=== PATIENT | female | born 1960 | race Two or more races ===

== ENCOUNTER → 2024-06-04 | Outpatient (CLI) | payer OTHER, SELFPAY ==
--- NOTE | 2024-06-04 14:15 | XR_ITS ---
Examination: Bone densitometry Date and time of exam:June 04, 2024 1412 hours INDICATIONS: Menopause age 53, personal history osteopenia Technique: Lumbar spine and hip total bone mineralization values of an calculated. Peak reference and age match control results have been displayed. Findings: Lumbar spine total bone mineralization is0.926 gm/cm2. This is 1.1 standard deviations below peak reference. This is 0.6 standard deviations above age-matched controls. Hip total bone mineralization is 1.000 gm/cm2 This is 0.3 standard deviations above peak reference. This is 1.3 standard deviations above age-matched controls Impression: There is osteopenia based on lumbar spine measurements. There is osteopenia based on hip measurements Lumbar mineralization is decreased 0.2% compared with January 09, 2014 Hip mineralization is decreased 0.2% compared with January 09, 2014
== END | disposition home or self-care (01) ==
PROVIDERS: PCP Specialist; Referring Provider Specialist; Visit Provider Specialist
DX: M85.89 Other specified disorders of bone density and structure, multiple sites (principal)
CPT/HCPCS: 77080

== ENCOUNTER → 2024-07-17 | Outpatient (CLI) | payer OTHER, SELFPAY ==
--- NOTE | 2024-07-17 14:49 | XR_ITS ---
Examination: Bilateral wrists 6 views Technique: Wrist AP, oblique, lateral 3 views each wrist total 6 views Date and time of exam: July 09, 2024 1546 hours Bilateral hand pain and numbness wrist pain especially right wrist one month FINDINGS: Moderate osteopenia Mild diffuse narrowing radiocarpal intercarpal carpometacarpal joints right and left wrist No erosive arthritis No opaque foreign bodies IMPRESSION: Moderate osteopenia Mild diffuse narrowing radiocarpal, intercarpal, carpometacarpal joints right and left wrist No erosive arthritis No fractures
--- NOTE | 2024-07-17 14:49 | XR_ITS ---
Examination: Bilateral hands, 6 views. 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
== END | disposition home or self-care (01) ==
PROVIDERS: PCP Specialist; Referring Provider Specialist; Visit Provider Specialist
DX: M19.042 Primary osteoarthritis, left hand (principal); M25.842 Other specified joint disorders, left hand; M25.841 Other specified joint disorders, right hand; M85.88 Other specified disorders of bone density and structure, other site; M25.832 Other specified joint disorders, left wrist; M25.831 Other specified joint disorders, right wrist
CPT/HCPCS: 73110; 73130

== ENCOUNTER → 2024-08-20 | Outpatient (CLI) | payer OTHER, SELFPAY ==
[2024-08-20 11:38] LABS: Parathyroid Hormone Intact 77.9 pg/ml (18.5-88.0)
[2024-08-20 11:39] LABS: Glucose Estimated Average 100 mg/dL (80-131); Hemoglobin A1C 5.1 % Hgb (4.8-6.0)
[2024-08-20 11:42] LABS: Follicle Stimulating Hormone 41.49 mIU/mL (See Note)
[2024-08-20 11:44] LABS: Alanine Aminotransferase 19 U/L (10-49); Albumin, Serum 4.3 gm/dL (3.4-4.8); Alkaline Phosphatase 88 U/L (46-116); Anion Gap 8 (7-16); Aspartate Amino Transferase 14 U/L (0-34); BUN/Creatinine Ratio 27 Ratio (12-20); Bilirubin,Total 0.5 mg/dL (0.3-1.2); Blood Urea Nitrogen 16 mg/dL (9-23); Calcium 9.4 mg/dL (8.3-10.6); Calcium (Corrected) 9.4 mg/dL (8.5-10.1); Carbon Dioxide 24.9 mMol/L (20.0-31.0); Cardiac Risk Estimate 4.1 RATIO (3.7-5.6); Chloride 112 mMol/L (98-107); Cholesterol 199 mg/dL (132-200); Creatinine (Component) 0.6 mg/dL (0.6-1.3); Globulin 2.2 gm/dL (2.3-3.5); Glucose 92 mg/dL (74-106); HDL Cholesterol 49 mg/dL (40-60); LDL Cholesterol,Calculated 130 mg/dL (0-130); Osmolality,Calculated 289 (275-295); Potassium 4.7 mMol/L (3.4-5.1); Sodium 145 mMol/L (136-145); Thyroid Stimulating Hormone 1.04 uIU/mL (0.55-4.78); Total Protein 6.5 gm/dL (5.7-8.2); Triglycerides 99 mg/dL (30-150); eGFR > 60 See Note
[2024-08-24 06:30] LABS: Vitamin D, 25-OH, D2 <4 ng/mL; Vitamin D, 25-OH, D3 28 ng/mL; Vitamin D, 25-OH, Total 28 ng/mL (30-100)
== END | disposition home or self-care (01) ==
LOC: COPL 10:08
PROVIDERS: PCP Specialist; Referring Provider Specialist; Visit Provider Specialist
DX: N95.1 Menopausal and female climacteric states (principal); M85.89 Other specified disorders of bone density and structure, multiple sites; I10 Essential (primary) hypertension
CPT/HCPCS: 36415; 80053; 80061; 82306; 83001; 83036; 83970; 84443

== ENCOUNTER → 2024-10-24 | Outpatient (CLI) | payer OTHER, SELFPAY ==
--- NOTE | 2024-10-24 10:51 | XR_ITS ---
Examination: Sinus series 3 views TECHNIQUE: Mehdi Drake lateral sinus series 3 views Exam date and time: October 24, 2024 1144 hours INDICATIONS: Sinus pressure and pain months FINDINGS: Prominent opacity in the frontal and ethmoid air cells No fluid levels No cortical bone destruction IMPRESSION: Prominent frontal ethmoid chronic sinusitis
== END | disposition home or self-care (01) ==
LOC: CDIM 10:40
PROVIDERS: PCP Specialist; Referring Provider Specialist; Visit Provider Specialist
DX: J32.8 Other chronic sinusitis (principal)
CPT/HCPCS: 70220

== ENCOUNTER 2024-11-26 11:15 | Day surgery (SDC) | payer OTHER, SELFPAY ==
[2024-11-23 15:14] VITALS: BMI 31.8
[2024-11-26] VITALS (10 sets, daily range): BP systolic 100–135; BP diastolic 61–78; PULSE 58–71; RESP 12–20; TEMP 36.1–37.2; O2SAT 95–99; BMI 31.4
[2024-11-26] MEDS: DiphenhydrAMINE INJ 50 MG/ML VIAL 25 MG IVP (12:23)
[2024-11-26] MEDS: MIDAZOLAM INJ 1 MG/ML VIAL 2 ML (ASD USE ONLY) 2 MG IVP (14:06)
[2024-11-26] MEDS: SODIUM CHLORIDE 0.9% 500 ML 500 ML 20 ML IV (14:06)
[2024-11-26] MEDS: fentaNYL CIT INJ 50 mCg/ML AMP 2ML (ASD USE ONLY) IVP (14:06)
--- NOTE | 2024-11-26 14:27 | SUR.PHASEII ---
1355 Pt more awake and alert. Denies pain or N/V. Abd remains soft. Pt pepe PO fluids. 1415 Pt assessment unchanged. No complaints. Amb with steady gait. Able to dress self. Pt and sister given dc instructions. Both state understanding. Pt meets dc criteria-to home.
== END 2024-11-26 14:15 | disposition home or self-care (01) ==
PROVIDERS: PCP Specialist; Referring Provider Specialist; Visit Provider Specialist
PROC: 0DBE8ZX Excision of Large Intestine, Via Natural or Artificial Opening Endoscopic, Diagnostic (ICD-10-PCS; CPT 45380; principal; 2024-11-26 12:00)
DX: Z12.11 Encounter for screening for malignant neoplasm of colon (principal); K64.9 Unspecified hemorrhoids; K57.30 Diverticulosis of large intestine without perforation or abscess without bleeding
CPT/HCPCS: 45378; J1200; J2250; J3010; J7040

== ENCOUNTER → 2024-12-10 | Outpatient (CLI) | payer OTHER, SELFPAY ==
[2024-12-10 16:57] LABS: Collection Type, Urine Clean Catch
[2024-12-10 17:51] LABS: Bilirubin,Urine Negative (Negative); Blood,Urine 2+ (Negative); Clarity,Urine Turbid (Clear/Hazy); Color,Urine Lt-Yellow (Lt Yel-Yel); Glucose, Urine Negative (Negative); Ketones,Urine Negative (Negative); Leukocyte Esterase,Urine Positive (Negative); Nitrite,Urine Negative (Negative); Protein,Urine Trace (Neg - Trace); RBC,Urine 72 /hpf (0-3); Squamous Epithelial Cell,Urine < 1 /hpf (0-5); Urobilinogen,Urine Negative mg/dL (0.0-1.0); WBC,Urine 133 /hpf (0-5)
== END | disposition home or self-care (01) ==
LOC: SLDO 16:53
PROVIDERS: PCP Specialist; Referring Provider Specialist; Visit Provider Specialist
DX: R30.0 Dysuria (principal)
CPT/HCPCS: 81001; 87077; 87086; 87186

== ENCOUNTER → 2025-06-06 | Outpatient (CLI) | payer OTHER, SELFPAY | END | disposition home or self-care (01) | LOC: SLDO 14:57 | PROVIDERS: PCP Specialist; Referring Provider Specialist; Visit Provider Specialist | DX: J02.9 Acute pharyngitis, unspecified (principal) | CPT/HCPCS: 87070 ==

== ENCOUNTER → 2025-06-12 | Outpatient (CLI) | payer OTHER, SELFPAY ==
--- NOTE | 2025-06-12 09:00 | XR_ITS ---
Examination: Screening digital mammography, bilateral Computer aided detection 3-D breast Tomosynthesis, bilateral Date and time of exam: June 12, 2025, 0844 hours, compared to mammograms dating to January 27, 2011 Indication: Screening Technique: Nonmagnified MLO, CC views of the breasts to been obtained, reconstructed from 3-D Tomosynthesis images. R2 computer aided detection program utilized for evaluation of suspicious masses and/or abnormal calcifications. 3-D Tomosynthesis images obtained. Findings: Scattered areas of fibroglandular density. Benign calcifications. No interval suspicious masses Impression: BI-RADS category II: Benign Findings. Recommend 1 year follow-up mammogram.
== END | disposition home or self-care (01) ==
PROVIDERS: Referring Provider Obstetrics & Gynecology; Visit Provider Obstetrics & Gynecology
DX: Z12.31 Encounter for screening mammogram for malignant neoplasm of breast (principal); R92.323 Mammographic fibroglandular density, bilateral breasts; R92.1 Mammographic calcification found on diagnostic imaging of breast
CPT/HCPCS: 77063; 77067